=== PATIENT | female | born 2005 | race Caucasian/White ===

== ENCOUNTER 2023-08-14 09:48 | Day surgery (SDC) | payer OTHER ==
[2023-08-13 11:55] VITALS: BMI 24.3
[2023-08-14] MEDS ORDERED: Bupivacaine PF 0.5% 30 ML VIAL ONE ×2 (10:18→12:14)
[2023-08-14] MEDS ORDERED: fentaNYL 50 mcg/mL 1 mL Vial ONE ×5 (10:18→13:21)
[2023-08-14] MEDS ORDERED: Midazolam HCl 2 mg/2 ml Vial ONE (10:18)
[2023-08-14] MEDS ORDERED: Dexamethasone 4 mg/ml Vial ONE ×2 (10:58→11:54)
[2023-08-14] MEDS ORDERED: Lidocaine 1% PF 5 ML VIAL ONE ×2 (11:12→11:54)
[2023-08-14] MEDS ORDERED: Dexamethasone 20 MG/5 ML VIAL ONE (11:12)
[2023-08-14] MEDS ORDERED: PROPOFOL 200 MG/20 ML VIAL ONE (11:12)
[2023-08-14] MEDS ORDERED: Ondansetron PF 4 MG/2 ML Vial ONE ×2 (11:12→11:54)
[2023-08-14] MEDS ORDERED: Sodium Chloride 0.9% 100 ML ONE (11:29)
[2023-08-14] MEDS ORDERED: CEFAZOLIN 2 GM VIAL ONE (11:29)
[2023-08-14 11:32] LABS: BHCG - Serum Negative (NEGATIVE); Pregs Control Background? CLEAR/WHITE (CLR/WHITE); Pregs Control Bar Appear? YES (CONTROL BAR)
[2023-08-14] MEDS ORDERED: PROPOFOL 20 ML ONE (11:54)
[2023-08-14] MEDS ORDERED: Ketorolac Tromethamine 30 MG/ML VIAL ONE (11:54)
[2023-08-14] MEDS ORDERED: EPINEPHrine 1 MG/ML VIAL ONE (12:14)
[2023-08-14] MEDS ORDERED: Sevoflurane 250 ML INH ANEST BOTTLE ONE (12:23)
[2023-08-14] MEDS ORDERED: HYDROcodone/Acetaminophen 5/325 mg Tablet ONE (14:32)
== END 2023-08-14 15:20 | disposition home or self-care (01) ==
LOC: SDC 09:48
PROVIDERS: ATTEND Orthopaedic Surgery
PROC: 0QSG04Z Reposition Right Tibia with Internal Fixation Device, Open Approach (ICD-10-PCS; principal; 2023-08-14)
DX: S82.51XA Displaced fracture of medial malleolus of right tibia, initial encounter for closed fracture (principal); W17.2XXA Fall into hole, initial encounter
CPT/HCPCS: 84703; C1713; J0171; J1100; J1885; J2250; J2405; J2704; J3010; J3490; S0020